=== PATIENT | female | born 1935 | race Caucasian/White ===

== ENCOUNTER 2020-04-03 13:59 | Outpatient (CLI) | payer MEDICARE, BC, SELFPAY ==
--- NOTE | 2020-04-03 14:12 | XR_ITS ---
WS: [id number] Chest 2 views, 04/03/2020 Clinical Data: COUGH Comparison: None. Findings: No nodules, masses or effusions are seen. The heart is normal. The pulmonary vascularity is not increased. No pneumonia or pneumothorax is seen. The diaphragms are flattened. The aortic arch a nd descending aorta show calcification and tortuosity. 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 There are clips in the upper abdomen from a cholecystectomy. 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 XR/XR chest 2V* [id number] Impression: Atherosclerosis and hyperinflation.
== END 2020-04-03 14:00 | disposition home or self-care (01) ==
LOC: RADWPI 14:09
PROVIDERS: PCP Family Medicine; Visit Provider Specialist
DX: R05 Cough (principal); I70.90 Unspecified atherosclerosis
CPT/HCPCS: 71046

== ENCOUNTER → 2020-04-10 11:08 | Outpatient (BNVA) | payer MEDICARE, BC, SELFPAY | PROVIDERS: PCP Family Medicine; Visit Provider Specialist | DX: Z20.828 Contact with and (suspected) exposure to other viral communicable diseases (principal) | CPT/HCPCS: 87635 ==

== ENCOUNTER 2020-04-15 08:38 | Outpatient (CLI) | payer MEDICARE, BC, SELFPAY ==
--- NOTE | 2020-04-15 13:00 | PFTS_ITS ---
Date of Study:04/15/20 Date of Dictation: 04/20/2020 MECHANICS: Forced vital capacity (FVC) is . Normal Forced expiratory volume in one second (FEV1) is normal. FEV1/FVC is . Normal FLOW VOLUME LOOP: Normal . LUNG VOLUMES: Not measured DIFFUSING CAPACITY FOR CARBON MONOXIDE: Not measured . INTERPRETATION: Spirometry is normal with normal flow volume loops [facility]
== END 2020-04-15 08:39 | disposition home or self-care (01) ==
LOC: RT 08:39
PROVIDERS: PCP Family Medicine; Visit Provider Specialist
DX: R05 Cough (principal)
CPT/HCPCS: 94010; 94060; 94726; 94729

== ENCOUNTER → 2020-08-12 09:13 | Outpatient (BNVA) | payer MEDICARE, BC, SELFPAY | PROVIDERS: PCP Family Medicine; Visit Provider Internal Medicine Pulmonary Disease | DX: R04.2 Hemoptysis (principal); R06.00 Dyspnea, unspecified; J84.9 Interstitial pulmonary disease, unspecified | CPT/HCPCS: 80053; 81000; 82575; 83880; 84156; 85025; 85651; 86140; 86225; 86235 ==

== ENCOUNTER → 2020-08-28 10:24 | Outpatient (BNVA) | payer MEDICARE, BC, SELFPAY | PROVIDERS: PCP Family Medicine; Visit Provider Internal Medicine Pulmonary Disease | DX: Z01.84 Encounter for antibody response examination (principal) | CPT/HCPCS: 87635 ==

== ENCOUNTER 2020-09-01 08:50 | Outpatient (CLI) | payer MEDICARE, BC, SELFPAY ==
--- NOTE | 2020-09-01 08:58 | USCV_ITS ---
Stella Gilliam Age: 85 Gender: F : 1935 Exam Date: 09/01/2020 09:52 Ordering Phys: Darryl Harmon MD Technologist: Angelic Clemons Exam Location: [facility] [place] Indication: EVAL EF BP: 145 / 83 HR: 76 Rhythm: Sinus Technical Quality: Adequate MEASUREMENTS (Male / Female) Normal Values 2D ECHO LV Diastolic Diameter PLAX 4.3 cm 4.2 - 5.9 / 3.9 - 5.3 cm LV Systolic Diameter PLAX 2.7 cm LV Chamber Size 3.9 cm IVS Diastolic Thickness 1.0 cm 0.6 - 1.0 / 0.6 - 0.9 cm IVS Systolic Thickness 1.3 cm LVPW Diastolic Thickness 1.0 cm 0.6 - 1.0 / 0.6 - 0.9 cm LVPW Systolic Thickness 1.5 cm RV Chamber Size 2.2 cm LVOT Diameter 2.0 cm LV Ejection Fraction 2D Teich 67.4 % LV Ejection Fraction MOD 2C 59.2 % LV Ejection Fraction 2C AL 59.0 % LA Diameter 3.4 cm LA Width 4.0 cm LA Height 4.3 cm RA Width 3.0 cm RA Height 3.2 cm Aorta at Sinotubular Diameter 2.9 cm M-MODE LV Diastolic Diameter MM 5.5 cm 4.2 - 5.9 / 3.9 - 5.3 cm LV Systolic Diameter MM 3.3 cm LV Ejection Fraction MM Teich 71.3 % IVS Diastolic Thickness MM 0.6 cm 0.6 - 1.0 / 0.6 - 0.9 cm IVS Systolic Thickness MM 1.0 cm LVPW Diastolic Thickness MM 0.7 cm 0.6 - 1.0 / 0.6 - 0.9 cm LVPW Systolic Thickness MM 1.1 cm RV Diastolic Diameter MM 1.2 cm Aortic Annulus Diameter 2.7 cm LA Ao Ratio MM 1.3 MV E Point Septal Separation 0.3 cm DOPPLER AV Peak Velocity 166.0 cm/s LVOT Peak Velocity 119.0 cm/s AV Area Cont Eq vti 2.3 cm squared AV Area Cont Eq pk 2.3 cm squared MV Area PHT 3.5 cm squared Mitral E to A Ratio 1.0 MV E' Velocity 69.0 cm/s Mitral E to MV E' Ratio 10.9 Mitral E to LV E' Lateral Ratio 8.9 Mitral E to LV E' Septal Ratio 14.1 TR Peak Velocity 243.0 cm/s TR Peak Gradient 23.6 mmHg TV Peak E Velocity 56.0 cm/s Right Atrial Pressure 3.0 mmHg Pulmonary Artery Systolic Pressu 26.6 mmHg PV Peak Velocity 84.0 cm/s RV Acceleration Time 0.1 s RV Ejection Time 0.3 s RV AcT/ET 0.4 FINDINGS Left Ventricle Normal left ventricular size and systolic function, EF 59 %. Mild left ventricular hypertrophy. No regional wall motion abnormalities. Right Ventricle The right ventricle is normal in size and function. Right Atrium The right atrium is normal in size. Left Atrium Mildly increased left atrial size. Mitral Valve Mild mitral annular calcification. Mild mitral valve regurgitation. Aortic Valve Thickened aortic valve. Mild aortic valve regurgitation. Tricuspid Valve Trace tricuspid valve regurgitation. Pulmonic Valve No gross abnormalities noted Pericardium Normal pericardium without effusion. Aorta Normal ascending aorta dimension. CONCLUSIONS Normal left ventricular size and systolic function, EF 59 %. Mild left ventricular hypertrophy. No regional wall motion abnormalities. Mildly increased left atrial size. Mild mitral annular calcification. Mild mitral valve regurgitation. Thickened aortic valve. Mild aortic valve regurgitation. Trace tricuspid valve regurgitation. Estimated pulmonary artery peak systolic pressure was 27 mmHg There is no pericardial effusion. There are no intracardiac masses. No previous study is available for comparison. Dr Eliud Larson MD [facility] (Electronically Signed) Final Date: 01 September 2020 14:23 S
--- NOTE | 2020-09-01 09:18 | CT_ITS ---
WS: [id number] CT CHEST ANGIOGRAPHY WITH REFORMATS HISTORY: SOB/ rule out PE TECHNIQUE: Contiguous axial images are obtained through the chest during arterial injection of intrav enous contrast. Images are reconstructed to evaluate the pulmonary arteries. MIP imaging also reviewe d. All CT scans at [facility] use at least one of these dose optimization techniques: aut omated exposure control; mA and/or kV adjustment per patient size (includes targeted exams where dose is matched to clinical indication); or iterative reconstruction. CONTRAST: Omnipaque 350; 95 mL IV. DLP: 484.62 mGy.cm COMPARISON: None available. Excellent opacification of the pulmonary arteries. No pulmonary emboli through the segmental and some of the subsegmental branches. Pulmonary artery is slightly enlarged. Moderate atherosclerosis of aor ta. No aneurysm. Mild enlargement of all 4 heart chambers. No LEFT atrial appendage thrombus. No maria g cardial or pleural effusion. 4 mm subpleural nodule LEFT upper lobe. Benign granuloma RIGHT lung base . No pneumonia. Mild chronic emphysema. Mildly enlarged lymph node at the RIGHT hilum measuring 13 mm. Smaller lymph nodes at the LEFT hilum. Prior cholecystectomy. Moderate atherosclerosis suprarenal aorta and splenic artery. Marked increase in thoracic kyphosis. 20% T7 compression fracture without retropulsion. Bones are dif fusely osteopenic. CT/CT angio chest PE protcl [id number] IMPRESSION: 1. No pulmonary embolism. 2. Chronic emphysema. 3. Subpleural 4 mm nodule LEFT upper lobe. Recommend follow-up chest CT in 12 months. 4. Moderate atherosclerosis thoracic aorta and suprarenal aorta. 5. Prior cholecystectomy. 6. Indeterminate but likely reactive RIGHT hilar lymph node measuring 13 mm. 7. Pulmonary hypertension.
[2020-09-01] MEDS: iohexol 350 mg/mL 100 mL Btl IV (09:36)
--- NOTE | 2020-09-01 10:35 | PFTS_ITS ---
Date of Study:09/01/20 Date of Dictation: 09/02/2020 MECHANICS: Prebronchodilator forced vital capacity (FVC) is normal. Prebronchodilator forced expiratory volume in one second (FEV1) is normal. FEV1/FVC is normal. Postbronchodilator study not performed FLOW VOLUME LOOP: Normal . LUNG VOLUMES: Total lung capacity (TLC) is Normal. Residual volume (RV) is Normal. DIFFUSING CAPACITY FOR CARBON MONOXIDE: Normal when adjusted to hemoglobin. . INTERPRETATION: The spirometry and lung volumes are normal. Correlate clinically MTDD
--- NOTE | 2020-09-01 10:36 | PFTS_ITS ---
Date of Study:09/01/20 Date of Dictation: 09/02/2020 MECHANICS: Prebronchodilator forced vital capacity (FVC) is normal. Prebronchodilator forced expiratory volume in one second (FEV1) is normal. FEV1/FVC is normal. Postbronchodilator study not performed FLOW VOLUME LOOP: Normal . LUNG VOLUMES: Total lung capacity (TLC) is normal. Residual volume (RV) is normal. DIFFUSING CAPACITY FOR CARBON MONOXIDE: Normal when adjusted to hemoglobin . INTERPRETATION: The pulmonary function tests are normal. MTDD
== END 2020-09-01 08:51 | disposition home or self-care (01) ==
PROVIDERS: PCP Family Medicine; Visit Provider Internal Medicine Pulmonary Disease
DX: R04.2 Hemoptysis (principal); R06.00 Dyspnea, unspecified; R06.02 Shortness of breath; J43.9 Emphysema, unspecified; R91.1 Solitary pulmonary nodule; I70.0 Atherosclerosis of aorta; Z90.49 Acquired absence of other specified parts of digestive tract; I27.20 Pulmonary hypertension, unspecified; I08.3 Combined rheumatic disorders of mitral, aortic and tricuspid valves
CPT/HCPCS: 71275; 93306; 94010; 94726; 94729

== ENCOUNTER → 2022-11-24 12:16 | Outpatient (BNVA) | payer MEDICARE, SELFPAY | PROVIDERS: PCP Family Medicine; Visit Provider Internal Medicine | DX: E05.90 Thyrotoxicosis, unspecified without thyrotoxic crisis or storm (principal); I10 Essential (primary) hypertension | CPT/HCPCS: 36415; 84439; 84443; 84480; 99204 ==

== ENCOUNTER 2023-04-06 15:32 | Outpatient (CLI) | payer MEDICARE, SELFPAY ==
[2023-04-06 16:27] LABS: Basophils # 0.1 10^3/uL (0.0-0.1); Basophils % 0.8 %; Eosinophils # 0.1 10^3/uL (0.0-0.8); Eosinophils % 1.6 %; Hematocrit 36.4 % (36-47); Lymphocytes % 23.4 %; Mean Corpuscular HGB Conc 31.6 g/dL (30-55); Mean Corpuscular Hemoglobin 30.5 pg (27-33); Mean Corpuscular Volume 96.6 fl (85-98); Mean Platelet Volume 9.4 fL (7.4-10.4); Monocytes # 0.5 10^3/uL (0.2-0.9); Monocytes % 6.1 %; Neutrophils # 5.86 10^3/uL (1.8-7.7); Neutrophils % 67.6 %; Nucleated Red Blood Cells % 0 %; Platelet Count 443 10^3/cmm (157-399); Red Blood Count 3.77 10^6/uL (3.85-5.65); Red Cell Distribution Width 13.6 % (12.1-15.1); White Blood Count 8.67 10^3/uL (3.29-11.43)
[2023-04-06 16:54] LABS: Alanine Aminotransferase 10 U/L (0-33); Alkaline Phosphatase 185 U/L (35-105); Aspartate Amino Transferase 16 U/L (0-32); Blood Urea Nitrogen 24 mg/dL (8-23); Calcium 9.5 mg/dL (8.5-10.5); Carbon Dioxide 26 mmol/L (22-29); Chloride 100 mmol/L (98-107); Globulin 4.2 g/dL (1.3-4.6); Glucose 105 mg/dL (65-115); Osmolality Calculated 288 mOsm/kg (285-295); Sodium 137 mmol/L (136-145); Thyroid Stimulating Hormone 12.22 uIU/mL (0.27-4.20); Total Bilirubin 0.2 mg/dL (0.15-1.2); Total Protein 8.2 g/dL (6.6-8.7)
[2023-04-06 16:57] LABS: Anion Gap 15.5 (5-19); Potassium 4.5 mmol/L (3.5-5.1)
[2023-04-08 12:25] LABS: T3 Total 107 ng/dL (76-181)
== END 2023-04-06 15:33 | disposition home or self-care (01) ==
PROVIDERS: PCP Family Medicine; Visit Provider Internal Medicine
DX: E05.90 Thyrotoxicosis, unspecified without thyrotoxic crisis or storm (principal); R10.9 Unspecified abdominal pain
CPT/HCPCS: 36415; 80053; 84439; 84443; 84480; 85025

== ENCOUNTER 2023-05-25 13:18 | Outpatient (CLI) | payer MEDICARE, SELFPAY ==
--- NOTE | 2023-05-25 13:21 | USCV_ITS ---
Stella Gilliam Age: 88 Gender: F : 1935 Exam Date: 05/25/2023 13:59 Ordering Phys: Val Latif Technologist: GERALDINE [place] [facility] [place]: MURMUR BP: 151 / 75 HR: 61 Rhythm: Sinus Technical Quality: Adequate MEASUREMENTS (Male / Female) Normal Values 2D ECHO LVOT Diameter 1.9 cm LV Ejection Fraction MOD 2C 87.7 % LV Ejection Fraction 2C AL 87.6 % LA Diameter 3.9 cm LA Width 4.1 cm LA Height 4.5 cm RA Width 3.0 cm RA Height 4.5 cm Aorta at Sinotubular Diameter 2.3 cm IVC Diameter 1.8 cm M-MODE Aortic Annulus Diameter 2.6 cm LA Ao Ratio MM 1.5 MV E Point Septal Separation 0.6 cm DOPPLER AV Peak Velocity 229.0 cm/s LVOT Peak Velocity 113.0 cm/s AV Area Cont Eq vti 1.4 cm squared AV Area Cont Eq pk 1.4 cm squared MV Peak Velocity 137.0 cm/s MV Area PHT 3.0 cm squared Mitral E to A Ratio 1.3 MV E' Velocity 75.5 cm/s Mitral E to MV E' Ratio 16.3 Mitral E to LV E' Lateral Ratio 15.3 Mitral E to LV E' Septal Ratio 17.7 TR Peak Velocity 277.1 cm/s TR Peak Gradient 30.7 mmHg TR Mean Velocity 215.5 cm/s TR Mean Gradient 20.5 mmHg TR Velocity Time Integral 84.4 cm TV Peak E Velocity 75.0 cm/s Right Atrial Pressure 3.0 mmHg Pulmonary Artery Systolic Pressu 33.7 mmHg PV Peak Velocity 168.0 cm/s RV Acceleration Time 0.1 s RV Ejection Time 0.3 s RV AcT/ET 0.5 FINDINGS Left Ventricle Left ventricle is normal in size. LV systolic function is normal with EF of 60 to 65%. No regional wall abnormalities are seen. Right Ventricle Normal in size and function Right Atrium Normal in size Left Atrium Dilated Mitral Valve Moderate mitral annular calcification. Mild to moderate mitral regurgitation Aortic Valve Aortic valve is thickened. Mild aortic stenosis with aortic valve area of 1.72 cm squared and mean gradient of 10 mmHg. Mild aortic regurgitation. Tricuspid Valve Mild tricuspid regurgitation. Pulmonary artery systolic pressure is normal. Pulmonic Valve Mild to moderate pulmonic regurgitation Pericardium Normal Aorta Normal in size IVC Appears to be normal CONCLUSIONS LV systolic function is normal with EF of 60 to 65%. Left atrial dilation Mild to moderate mitral regurgitation Mild aortic stenosis Mild aortic regurgitation Mild tricuspid regurgitation Mild to moderate pulmonic regurgitation Compared to prior echocardiogram from 2020, patient now has mild aortic stenosis. Pankaj Joshi MD (Electronically Signed) Final Date: 27 May 2023 16:28 S
== END 2023-05-25 13:19 | disposition home or self-care (01) ==
LOC: RAD 13:18
PROVIDERS: PCP Family Medicine; Visit Provider Nurse Practitioner Family
DX: R01.1 Cardiac murmur, unspecified (principal); I08.8 Other rheumatic multiple valve diseases
CPT/HCPCS: 93306

== ENCOUNTER → 2023-07-21 08:57 | Outpatient (BNVA) | payer MEDICARE, SELFPAY | PROVIDERS: PCP Family Medicine; Visit Provider Internal Medicine | DX: E11.9 Type 2 diabetes mellitus without complications (principal); E05.90 Thyrotoxicosis, unspecified without thyrotoxic crisis or storm; I10 Essential (primary) hypertension | CPT/HCPCS: 36415; 84439; 84443; 84480; 99214 ==

== ENCOUNTER 2023-10-02 05:51 | Emergency (ER) | payer MEDICARE, SELFPAY ==
[2023-10-02] VITALS (36 sets, daily range): BP systolic 123–171; BP diastolic 62–87; PULSE 86–103; RESP 12–24; TEMP 36.9; O2SAT 93–97; BMI 22.8
--- NOTE | 2023-10-02 06:18 | ECG_ITS ---
[facility] Test Date: 2023-10-02 Pat Name: Stella Gilliam Department: Room: Gender: Female Machine Folder: : 1935 Requested By: Kenneth Lagos Order Number: [id number] Christy MD: Eliud Larson M.D. Measurements Intervals [place] Rate: 95 P: 64 VA: 174 QRS: -82 QRSD: 154 T: 102 QT: 386 QTc: 487 Interpretive Statements ELECTRONIC VENTRICULAR [id number] V paced rhythm ABNORMAL RHYTHM ECG No previous ECG available for comparison Electronically Signed On 10-02-2023 17:45:26 CDT by Eliud Larson M.D. [email or web address]
--- NOTE | 2023-10-02 06:18 | XRR_ITS ---
PROCEDURE INFORMATION: Exam: XR Chest Exam date and time: 10/02/2023 6:27 AM Age: 88 years old Clinical indication: Cough and dyspnea; Additional info: Dyspnea/cough TECHNIQUE: Imaging protocol: Radiologic exam of the chest. Views: 1 view. COMPARISON: CT angio chest PE protcl [id number] 09/01/2020 9:50 AM FINDINGS: Lungs: There is a background of emphysema and pulmonary fibrosis. Some strandy opacities are seen in the lower rei thoraces bilaterally in mildly increased peribronchial markings, findings that could represent bilateral bronchitis and bilateral basilar atelectasis and/or pneumonitis. Pleural spaces: Unremarkable. No pleural effusion. No pneumothorax. Heart/Mediastinum: Unremarkable. No cardiomegaly. Bones/joints: Unremarkable. XR/XR chest 1V portable [id number] IMPRESSION: 1. There is a background of emphysema and pulmonary fibrosis. 2. Increased peribronchial markings and some strandy opacities are seen in the lower rei thoraces, findings may represent bilateral bronchitis and bilateral basilar atelectasis versus pneumonitis.
--- NOTE | 2023-10-02 06:24 | W.ED.NAVMDI ---
HPI - Nausea/Vomiting/Diarrhea General: Chief complaint: Nausea/Vomiting/Diarrhea Stated complaint: N/V/D sudden onset no temp abd pain Time Seen by Provider: 10/02/23 06:02 Source: patient Mode of arrival: ambulatory History of Present Illness: 88-year-old female presents emergency room complaining of nausea vomiting abdominal pain that began suddenly overnight. She refers to generalized abdominal pain just reports she has had the diarrhea bolus like vomiting denies any medic easier melena hematemesis or cough noticed denies dysuria urgency or frequency. She has previously had a cholecystectomy denies any other abdominal surgeries. Has a history of diabetes mellitus. MD elicited complaint: nausea and vomiting Associated symtoms: Denies chest pain or dysuria Review of Systems Const: Denies: fever(s) or chills Card: Denies: chest pain Resp: Denies: dyspnea GI: Denies: abdominal pain : Denies: dysuria, urinary frequency or urinary urgency Musc: Denies: neck pain or back pain Skin/Breast: Denies: rash PFSH ED PFSH: Social History Smoking and tobacco/nicotine status: never used tobacco/nicotine Second hand smoke exposure: Yes Alcohol intake: never Substance/Drug Use: never Caregiver/support person: No Lives independently: Yes Household members: spouse Housing: House Marital status: Current occupational status: retired Pets and animals: Yes Do you think of yourself as: Straight/Heterosexual Current gender identity: Female Physical Exam Const: GENERAL APPEARANCE: cooperative ORIENTATION/CONSCIOUSNESS: Yes awake, Yes oriented to person, Yes oriented to place and Yes oriented to time HENMT: COMMON NORMALS: normocephalic, atraumatic and hearing grossly normal bilaterally HEAD & SCALP: normocephalic and atraumatic Resp: COMMON NORMALS: normal respiratory effort, No retractions, No use of accessory muscles and clear to auscultation bilaterally AUSCULTATION: clear to auscultation bilaterally Cardio: COMMON NORMALS: regular rate and regular rhythm RATE: regular rate RHYTHM: regular rhythm HEART SOUNDS: Murmur heart sound present systolic Location: left sternal border Intensity: IV/ GI: COMMON NORMALS: No hepatosplenomegaly present AUSCULTATION: Yes Hypoactive bowel sounds present PALPATION: Yes Tenderness to palpation present (GI) (General), No Guarding due to palpation present (GI) and Yes No hepatosplenomegaly present Extremity: COMMON NORMALS: normal to inspection, capillary refill normal, no clubbing, cyanosis or edema, no calf tenderness and no pedal edema Neuro: SENSORIUM/ORIENTATION: Yes oriented to person, Yes oriented to place and Yes oriented to time Skin: COMMON NORMALS: no rashes or lesions noted GENERAL SKIN EXAM: no rashes or lesions noted Course Vital Signs: Vital signs: Vital Signs Temperature 98.5 F 10/02/23 06:00 Pulse Rate 90 10/02/23 14:00 Respiratory Rate 19 H 10/02/23 14:00 Blood Pressure 145/70 10/02/23 14:00 Pulse Oximetry 94 10/02/23 14:00 Oxygen Delivery Me thod Room Air 10/02/23 06:22 MDM - Nausea/Vomiting/Diarrhea Medical Decision Making Liver enzymes and T. bili elevated. CT shows dilation of the common bile duct extending to the ampulla there is also intrahepatic duct dilation and pancreatic duct dilation. Were unable to do an ERCP because of her pacemaker. Concern for ascending cholangitis and/or mass at the ampulla. She will need an ERCP. Cultures done started on Zosyn and will transfer to [facility] in [place] they have available beds in the capacity to do ERCP. Discussed with patient she is agreeable. Medical Records I reviewed the patient's medical records. Lab Data I reviewed the patient's lab results. 10/02/23 06:15 10/02/23 06:15 Radiology Impressions Chest X-Ray 10/02/23 06:18 IMPRESSION: 1. There is a background of emphysema and pulmonary fibrosis. 2. Increased peribronchial markings and some strandy opacities are seen in the lower rei thoraces, findings may represent bilateral bronchitis and bilateral basilar atelectasis versus pneumonitis. Abdomen/Pelvis CT 10/02/23 06:31 IMPRESSION: 1. There is intra and extrahepatic biliary dilatation with the common bile duct remaining prominent to the level of the ampulla. Likewise, there is dilatation of the main pancreatic duct extending to the level of the ampulla. There are no intraluminal or extraluminal mass is seen. However, an ampullary mass cannot be entirely excluded. Follow-up nonemergent ERCP is suggested. 2. Nondilated small bowel loops containing fluid and some air-fluid levels could represent ileus. 3. Diverticulosis of the descending and sigmoid colon Laboratory Results WBC 23.18 10^3/uL (3.29-11.43) H 10/02/23 06:15 RBC 4.71 10^6/uL (3.85-5.65) 10/02/23 06:15 Hgb 14.40 g/dL (11.27-16.99) 10/02/23 06:15 Hct 44.4 % (36-47) 10/02/23 06:15 MCV 94.3 fl (85-98) 10/02/23 06:15 MCH 30.6 pg (27-33) 10/02/23 06:15 MCHC 32.4 g/dL (30-55) 10/02/23 06:15 RDW 15.0 % (12.1-15.1) 10/02/23 06:15 Plt Count 260 10^3/cmm (157-399) 10/02/23 06:15 MPV 9.4 fL (7.4-10.4) 10/02/23 06:15 Neut % (Auto) 94.9 % 10/02/23 06:15 Lymph % (Auto) 2.0 % 10/02/23 06:15 [place] % (Auto) 2.1 % 10/02/23 06:15 Eos % (Auto) 0.0 % 10/02/23 06:15 Baso % (Auto) 0.2 % 10/02/23 06:15 Neut # (Auto) 22.01 10^3/uL (1.8-7.7) H 10/02/23 06:15 Lymph # (Auto) 0.5 10^3/uL (0.8-4.8) L 10/02/23 06:15 [place] # (Auto) 0.5 10^3/uL (0.2-0.9) 10/02/23 06:15 Eos # (Auto) 0.0 10^3/uL (0.0-0.8) 10/02/23 06:15 Baso # (Auto) 0.1 10^3/uL (0.0-0.1) 10/02/23 06:15 Nucleated RBC % (auto) 0 % 10/02/23 06:15 Nucleated RBCs # 0.0 /100WBC 10/02/23 06:15 Sodium 138 mmol/L (136-145) 10/02/23 06:15 Potassium 3.7 mmol/L (3.5-5.1) 10/02/23 06:15 Chloride 102 mmol/L (98-107) 10/02/23 06:15 Carbon Dioxide 21 mmol/L (22-29) L 10/02/23 06:15 Anion Gap 18.7 (5-19) 10/02/23 06:15 BUN 31 mg/dL (8-23) H 10/02/23 06:15 Creatinine 1.1 mg/dL (0.5-0.9) H 10/02/23 06:15 GFR Calculation Not Reportable 10/02/23 06:15 Glucose 176 mg/dL (65-115) H 10/02/23 06:15 Calculated Osmolality 297 mOsm/kg (285-295) H 10/02/23 06:15 Lactic Acid 1.4 mmol/L (0.5-2.2) 10/02/23 06:15 Calcium 9.3 mg/dL (8.5-10.5) 10/02/23 06:15 Total Bilirubin 0.7 mg/dL (0.15-1.2) 10/02/23 06:15 AST 23 U/L (0-32) 10/02/23 06:15 ALT 25 U/L (0-33) 10/02/23 06:15 Alkaline Phosphatase 105 U/L (35-105) 10/02/23 06:15 Total Protein 7.4 g/dL (6.6-8.7) 10/02/23 06:15 Albumin 4.1 g/dL (3.5-5.2) 10/02/23 06:15 Globulin 3.3 g/dL (1.3-4.6) 10/02/23 06:15 Triglycerides 96 mg/dL (0-150) 10/02/23 06:21 Lipase 74 U/L (13-60) H 10/02/23 06:15 Urine Color Straw (Yellow) 10/02/23 07:50 Urine Appearance Clear (CLEAR) 10/02/23 07:50 Urine pH 5 (5-7) 10/02/23 07:50 Ur Specific [place] 1.010 (1.005-1.030) 10/02/23 07:50 Urine Protein Trace (Negative) 10/02/23 07:50 Urine Glucose (UA) Norm (Normal) 10/02/23 07:50 Urine Ketones Negative (Negative) 10/02/23 07:50 Urine Blood 2+ (Negative) H 10/02/23 07:50 Urine Nitrate Negative (Negative) 10/02/23 07:50 Urine Bilirubin Neg (Negative) 10/02/23 07:50 Urine Urobilinogen Neg mg/dL (Negative) 10/02/23 07:50 Ur Leukocyte Esterase 1+ (Negative) H 10/02/23 07:50 Urine RBC 0-4 /hpf (0-2) H 10/02/23 07:50 Urine WBC 5-10 /hpf (0-5) H 10/02/23 07:50 Ur Squamous Epith Cells 0-4 /hpf (0-5) H 10/02/23 07:50 Amorphous Sediment Not Reportable 10/02/23 07:50 Urine Bacteria Trace /hpf (NONE) 10/02/23 07:50 Hyaline Casts Rare /lpf 10/02/23 07:50 All radiology interpretation(s) finalized by discharge Discharge Plan Discharge Condition: Stable Prescriptions: No Action amlodipine 10 mg tablet 10 mg PO DAILY levocetirizine 5 mg tablet 5 mg PO DAILY azelastine 137 mcg (0.1 %) aerosol,spray 2 spray intranasal BID Rx Instructions: administer into each nostril omeprazole 20 mg capsule,delayed release(DR/EC) 20 mg PO DAILY PreserVision AREDS [phone] [id number] capsule 1 cap PO BID calcium carbonate [Calcium 600] 600 mg calcium (1,500 mg) tablet 600 mg PO DAILY glucosamine sulfate [Glucosamine] 500 mg tablet 500 mg PO DAILY Rx Instructions: administer with a meal ascorbate calcium (vitamin C) 500 mg tablet 500 mg PO DAILY albuterol sulfate 90 mcg/actuation HFA aerosol inhaler 2 puff inhalation Q6H PRN (Reason: shortness of breath or wheezing) Qty: 8.5 3RF prednisone 10 mg tablet 10 mg PO BID methimazole 5 mg tablet See Rx Instructions .ROUTE .COMPLEX Qty: 100 2RF Dose Instruction: TAKE 1 TABLET EVERY OTHER DAY WITH 2 TABLETS BY MOUTH EVERY OTHER DAY ALTERNATE DAYS Rx Instructions: TAKE 1 TABLET EVERY OTHER DAY WITH 2 TABLETS BY MOUTH EVERY OTHER DAY ALTERNATE DAYS Referrals: Tiana Wolfe MD [Primary Care Provider] - Coding Level of Care Code ED Engineering Document Control Clerk for Pema Payan
[2023-10-02 06:29] LABS: Basophils # 0.1 10^3/uL (0.0-0.1); Basophils % 0.2 %; Hematocrit 44.4 % (36-47); Lymphocytes # 0.5 10^3/uL (0.8-4.8); Mean Corpuscular HGB Conc 32.4 g/dL (30-55); Mean Corpuscular Hemoglobin 30.6 pg (27-33); Mean Corpuscular Volume 94.3 fl (85-98); Mean Platelet Volume 9.4 fL (7.4-10.4); Monocytes # 0.5 10^3/uL (0.2-0.9); Monocytes % 2.1 %; Neutrophils # 22.01 10^3/uL (1.8-7.7); Neutrophils % 94.9 %; Nucleated Red Blood Cells % 0 %; Platelet Count 260 10^3/cmm (157-399); Red Blood Count 4.71 10^6/uL (3.85-5.65); White Blood Count 23.18 10^3/uL (3.29-11.43)
--- NOTE | 2023-10-02 06:31 | CTR_ITS ---
PROCEDURE INFORMATION: Exam: CT Abdomen And Pelvis With Contrast Exam date and time: 10/02/2023 7:03 AM Age: 88 years old Clinical indication: Abdominal pain; Additional info: Abd pain TECHNIQUE: Imaging protocol: Computed tomography of the abdomen and pelvis with contrast. Radiation optimization: All CT scans at this facility use at least one of these dose optimization techniques: automated exposure control; mA and/or kV adjustment per patient size (includes targeted exams where dose is matched to clinical indication); or iterative reconstruction. Contrast material: OMMNI 350; Contrast volume: 80 ml; Contrast route: INTRAVENOUS (IV); COMPARISON: CT angio chest PE protcl [id number] 09/01/2020 9:50 AM RADIATION DOSE METRICS: Total DLP (mGy-cm): 351.19 FINDINGS: Liver: Normal. No mass. Gallbladder and bile ducts: There is mild intrahepatic biliary dilatation. Status post cholecystectomy. Common bile duct measures 11.5 mm is midportion 9.6 mm in the pancreatic head. Is no evidence for choledocholithiasis or extrinsic Pancreas: There is prominence of the main pancreatic duct measuring 4 5 mm within the pancreatic body and 4.7 mm within the pancreatic head. There is no evidence for intrinsic extrinsic masses. Spleen: Normal. No splenomegaly. Adrenal glands: Normal. No mass. Kidneys and ureters: Normal. No hydronephrosis. Stomach and bowel: There are fluid-filled nondilated loops small containing some, findings may represent ileus. Diverticula present on descending and sigmoid colon. There are no inflammatory changes seen to suggest diverticulitis. Appendix: No evidence of appendicitis. Intraperitoneal space: Unremarkable. No free air. No significant fluid collection. Vasculature: Unremarkable. No abdominal aortic aneurysm. Lymph nodes: Unremarkable. No enlarged lymph nodes. Urinary bladder: Unremarkable as visualized. Reproductive: Coarse calcifications are seen within uterine myometrium likely representing a calcified. Bones/joints: Status post gamma nailing of the left hip. Soft tissues: Unremarkable. CT/CT abdomen pelvis w con* [id number] IMPRESSION: 1. There is intra and extrahepatic biliary dilatation with the common bile duct remaining prominent to the level of the ampulla. Likewise, there is dilatation of the main pancreatic duct extending to the level of the ampulla. There are no intraluminal or extraluminal mass is seen. However, an ampullary mass cannot be entirely excluded. Follow-up nonemergent ERCP is suggested. 2. Nondilated small bowel loops containing fluid and some air-fluid levels could represent ileus. 3. Diverticulosis of the descending and sigmoid colon
[2023-10-02 06:47] LABS: Alanine Aminotransferase 25 U/L (0-33); Albumin Level 4.1 g/dL (3.5-5.2); Alkaline Phosphatase 105 U/L (35-105); Anion Gap 18.7 (5-19); Aspartate Amino Transferase 23 U/L (0-32); Blood Urea Nitrogen 31 mg/dL (8-23); Calcium 9.3 mg/dL (8.5-10.5); Carbon Dioxide 21 mmol/L (22-29); Chloride 102 mmol/L (98-107); Globulin 3.3 g/dL (1.3-4.6); Glucose 176 mg/dL (65-115); Lipase 74 U/L (13-60); Osmolality Calculated 297 mOsm/kg (285-295); Potassium 3.7 mmol/L (3.5-5.1); Sodium 138 mmol/L (136-145); Total Bilirubin 0.7 mg/dL (0.15-1.2); Total Protein 7.4 g/dL (6.6-8.7)
[2023-10-02 06:55] LABS: Lactic Sepsis W/Reflex 1.4 mmol/L (0.5-2.2)
[2023-10-02] MEDS: iohexol 350 mg/mL 500 mL Btl (per mL) IV (07:05)
[2023-10-02 07:17] LABS: Triglycerides 96 mg/dL (0-150)
[2023-10-02 08:27] LABS: Add Urine Microscopic? YES; Bilirubin Urine Neg (Negative); Blood Urine 2+ (Negative); Glucose Urine UA Norm (Normal); Ketones Urine Negative (Negative); Leukocyte Esterase Urine 1+ (Negative); Nitrate Urine Negative (Negative); Protein Urine Trace (Negative); Urine Appearance Clear (CLEAR); Urine Color Straw (Yellow); Urobilinogen Urine Neg (Negative); pH Urine 5 (5-7)
[2023-10-02 08:28] LABS: Bacteria Urine TRACE /hpf; Hyaline Casts Urine RARE /lpf; RBC Urine 0-4 /hpf (0-2); Squamous Epithelial Cell Urine 0-4 /hpf (0-5)
[2023-10-02 08:29] LABS: Add Urine Culture? Yes
[2023-10-02] MEDS: piperacillin-tazobactam 3.375 GM in sodium chloride 0.9% (plus) 50 ML IV (08:59)
[2023-10-02] MEDS: dextrose 5%-ns 0.45% + KCl 40 1,000 ML 100 MEQ IV (16:31)
[2023-10-02 16:42] LABS: Glucose Point of Care 143 mg/dL (70-110)
== END 2023-10-02 18:23 | disposition short-term general hospital (02) ==
PROVIDERS: Emergency Provider Family Medicine; PCP Family Medicine
DX: R11.2 Nausea with vomiting, unspecified (principal); R10.9 Unspecified abdominal pain; Z77.22 Contact with and (suspected) exposure to environmental tobacco smoke (acute) (chronic)
CPT/HCPCS: 36416; 71045; 74177; 80053; 81001; 82962; 83605; 83690; 84478; 85025; 87040; 87086; 93005; 96365; 96366; 99285; J2543; Q9967